=== PATIENT | female | born 1995 | race Caucasian/White ===

== ENCOUNTER 2019-01-02 22:57 | Day surgery (SDC) | payer OTHER ==
[2019-01-02] MEDS ORDERED: Alum Hydroxide/Mag Hydroxide 30 ML, Lidocaine 2% 15 ML PO ONE ×2 (23:23)
[2019-01-02] MEDS ORDERED: Ondansetron 4 MG Tab.DIS PO ONE (23:23)
[2019-01-03] MEDS ORDERED: Ketorolac 60 MG/2 ML SDV IM ONE (00:04)
[2019-01-03] MEDS ORDERED: NS + KCl 20mEq/L 1,000 ML IV SCH ×2 (01:15→02:45)
[2019-01-03] MEDS ORDERED: Iopamidol 755 Mg/ML 100 ML Bottle IV ONE (01:16)
--- NOTE | 2019-01-03 02:31 | EDM.PDOC ---
ED HPI GENERAL MEDICAL PROBLEM - General Chief Complaint: Gastrointestinal Problem Stated Complaint: ABDOMINAL PAIN;VOMITING Time Seen by Provider: 01/03/19 02:26 Source of Information: Reports: Patient History Limitations: Reports: No Limitations - History of Present Illness INITIAL COMMENTS - FREE TEXT/NARRATIVE: c/o abd pain since 2p pt ate lunch, then developed pain from the umbilicus to the xiphoid at 2p that has persisted did not take meds at home, has not had abd pain or abd surgery in the past had a normal BM this AM and then a small BM this BM that did not affect the pain no f/c/d, has had slight nausea pt given Zofran ODT and GI cocktail on arrival, however still had pain and tenderness in the epigastrium labs obtained showing WBC 18k, resepat exam did show some tenderness know at García's point CT of abd/pelvis obtained looking for acute cholecystitis and CT showed a cephalad appendix with a thickened tip that was nearly touching the gallbaldder and met radiologic criteria for an acute appendicitis d/w Dr Gambino who requested Zosyn and surgery at 7 AM and pt to be NPO, she had taken a few sips of H2O on arrival at ED, none since she did not eat supper, did not have an appetite - Related Data Allergies Allergy/AdvReac Type Severity Reaction Status Date / Time No Known Allergies Allergy Verified 01/02/19 23:22 Home Meds: Home Meds . Control Med 1 tab PO DAILY 01/02/19 [History] Past Medical History Musculoskeletal History: Reports: Fracture, Other (See Below) Other Musculoskeletal History: left arm - Past Surgical History HEENT Surgical History: Reports: Oral Surgery, Tonsillectomy Social & Family History - Family History Family Medical History: Noncontributory - Tobacco Use Smoking Status *Q: Never Smoker - Caffeine Use Caffeine Use: Reports: None - Recreational Drug Use Recreational Drug Use: No ED ROS GENERAL - Review of Systems Review Of Systems: See Below Constitutional: Reports: No Symptoms HEENT: Reports: No Symptoms Respiratory: Reports: No Symptoms Cardiovascular: Reports: No Symptoms Endocrine: Reports: No Symptoms GI/Abdominal: Reports: Abdominal Pain, Nausea : Reports: No Symptoms Musculoskeletal: Reports: No Symptoms Skin: Reports: No Symptoms Neurological: Reports: No Symptoms Psychiatric: Reports: No Symptoms Hematologic/Lymphatic: Reports: No Symptoms Immunologic: Reports: No Symptoms ED EXAM, GI/ABD - Physical Exam Exam: See Below Exam Limited By: No Limitations General Appearance: Alert, WD/WN, No Apparent Distress Ears: Normal External Exam, Hearing Grossly Normal Nose: Normal Inspection, Normal Mucosa, No Blood Throat/Mouth: Normal Inspection, Normal Lips, Normal Teeth, Normal Voice, No Airway Compromise Head: Atraumatic, Normocephalic Neck: Normal Inspection, Supple, Non-Tender, Full Range of Motion Respiratory/Chest: No Respiratory Distress, Lungs Clear, Normal Breath Sounds, No Accessory Muscle Use, Chest Non-Tender Cardiovascular: Regular Rate, Rhythm, No Edema, No Gallop, No JVD, No Murmur, No Rub GI/Abdominal Exam: Soft, No Distention, Other (1+ tender in epigastirum and RUQ , later with 1+ tender in RLQ, no CVAT, BS present and normal to slightly decreased) Back Exam: Normal Inspection Extremities: Normal Inspection, Normal Range of Motion, Non-Tender, No Pedal Edema Neurological: Alert, Oriented, CN II-XII Intact, Normal Cognition, Normal Gait, No Motor/Sensory Deficits Psychiatric: Normal Affect, Normal Mood Skin Exam: Warm, Dry, Intact, Normal Color, No Rash Lymphatic: No Adenopathy Course - Vital Signs Last Recorded V/S: Last Vital Signs Temp 36.8 C 01/03/19 01:41 Pulse 65 01/03/19 01:41 Resp 18 01/03/19 01:41 BP 103/73 01/03/19 01:41 Pulse Ox 100 01/03/19 01:41 - Orders/Labs/Meds Orders: Active Orders 24 hr Category Date Time Status Abdomen Pelvis w Cont [CT] Stat Exams 01/03/19 01:02 Taken NS + KCl 20mEq/L [Normal Saline with 20 mEq KCl] 1,000 Med 01/03/19 01:15 Active ml IV ASDIRECTED Piperacillin/Tazobactam [Zosyn] 3.375 gm Med 01/03/19 02:30 Ordered Sodium Chloride 0.9% [Normal Saline] 50 ml IV Q6H Medication Orders Potassium Chloride/Sodium Chloride (Normal Saline With 20 Meq Kcl) 1,000 mls @ 999 mls/hr IV ASDIRECTED SEBASTIAN Last Admin: 01/03/19 01:36 Dose: 999 mls/hr Piperacillin Sod/Tazobactam (Sod 3.375 gm/ Sodium Chloride) 50 mls @ 100 mls/ hr IV Q6H SEBASTIAN Labs: Laboratory Tests 01/03/19 01/03/19 01/03/19 Range/Units 00:15 00:15 00:24 WBC 18.4 H (4.5-12.0) X10-3/uL RBC 5.05 (3.23-5.20) x10(6)uL Hgb 15.4 (11.5-15.5) g/dL Hct 44.5 (30.0-51.3) % MCV 88.1 (80-96) fL MCH 30.5 (27.7-33.6) pg MCHC 34.6 (32.2-35.4) g/dL RDW 12.5 (11.5-15.5) % Plt Count 244 (125-369) X10(3)uL MPV 9.1 (7.4-10.4) fL Add Manual Diff Yes Neutrophils % (Manual) 80 (46-82) % Band Neutrophils % 6 (0-6) % Lymphocytes % (Manual) 9 L (13-37) % Monocytes % (Manual) 4 (4-12) % Eosinophils % (Manual) 1 (0-5) % Sodium (135-145) mmol/L Potassium (3.5-5.3) mmol/L Chloride (100-110) mmol/L Carbon Dioxide (21-32) mmol/L BUN (7-18) mg/dL Creatinine (0.55-1.02) mg/dL Est Cr Clr Drug Dosing mL/min Estimated GFR (MDRD) (>60) BUN/Creatinine Ratio (9-20) Glucose (80-116) mg/dL Calcium (8.6-10.2) mg/dL Total Bilirubin (0.1-1.3) mg/dL AST (5-25) IU/L ALT (12-36) U/L Alkaline Phosphatase (56-112) IU/L C-Reactive Protein (0.5-0.9) mg/dL Total Protein (6.0-8.0) g/dL Albumin (3.5-5.2) g/dL Globulin g/dL Albumin/Globulin Ratio Amylase (25-115) U/L Urine Color Yellow (YELLOW) Urine Appearance Slightly cloudy (CLEAR) Urine pH 6.0 (5.0-6.5) Ur Specific [place] 1.030 H (1.010-1.025) Urine Protein Negative (NEGATIVE) mg/dL Urine Glucose (UA) Normal (NORMAL) mg/dL Urine Ketones 15 H (NEGATIVE) mg/dL Urine Occult Blood Negative (NEGATIVE) Urine Nitrite Negative (NEGATIVE) Urine Bilirubin Negative (NEGATIVE) Urine Urobilinogen Normal (NEGATIVE) mg/dL Ur Leukocyte Esterase Negative (NEGATIVE) Urine RBC 0-5 (0-5) Urine WBC 0-5 (0-5) Ur Squamous Epith Cells Moderate H (NS,R,O) Amorphous Sediment Few Urine Bacteria Few H (NS) Urine HCG, Qual Negative (NEGATIVE) 01/03/19 01/03/19 01/03/19 Range/Units 00:24 00:24 00:24 WBC (4.5-12.0) X10-3/uL RBC (3.23-5.20) x10(6)uL Hgb (11.5-15.5) g/dL Hct (30.0-51.3) % MCV (80-96) fL MCH (27.7-33.6) pg MCHC (32.2-35.4) g/dL RDW (11.5-15.5) % Plt Count (125-369) X10(3)uL MPV (7.4-10.4) fL Add Manual Diff Neutrophils % (Manual) (46-82) % Band Neutrophils % (0-6) % Lymphocytes % (Manual) (13-37) % Monocytes % (Manual) (4-12) % Eosinophils % (Manual) (0-5) % Sodium 138 (135-145) mmol/L Potassium 3.4 L (3.5-5.3) mmol/L Chloride 102 (100-110) mmol/L Carbon Dioxide 25 (21-32) mmol/L BUN 9 (7-18) mg/dL Creatinine 0.9 (0.55-1.02) mg/dL Est Cr Clr Drug Dosing 91.01 mL/min Estimated GFR (MDRD) > 60 (>60) BUN/Creatinine Ratio 10.0 (9-20) Glucose 124 H (80-116) mg/dL Calcium 9.4 (8.6-10.2) mg/dL Total Bilirubin 0.5 (0.1-1.3) mg/dL AST 16 (5-25) IU/L ALT 17 (12-36) U/L Alkaline Phosphatase 59 (56-112) IU/L C-Reactive Protein 0.3 L (0.5-0.9) mg/dL Total Protein 7.9 (6.0-8.0) g/dL Albumin 3.9 (3.5-5.2) g/dL Globulin 4.0 g/dL Albumin/Globulin Ratio 1.0 Amylase 206 H (25-115) U/L Urine Color (YELLOW) Urine Appearance (CLEAR) Urine pH (5.0-6.5) Ur Specific [place] (1.010-1.025) Urine Protein (NEGATIVE) mg/dL Urine Glucose (UA) (NORMAL) mg/dL Urine Ketones (NEGATIVE) mg/dL Urine Occult Blood (NEGATIVE) Urine Nitrite (NEGATIVE) Urine Bilirubin (NEGATIVE) Urine Urobilinogen (NEGATIVE) mg/dL Ur Leukocyte Esterase (NEGATIVE) Urine RBC (0-5) Urine WBC (0-5) Ur Squamous Epith Cells (NS,R,O) Amorphous Sediment Urine Bacteria (NS) Urine HCG, Qual (NEGATIVE) Meds: Medications Generic Name Dose Route Start Last Admin Trade Name Freq PRN Reason Stop Dose Admin Potassium Chloride/Sodium Chloride 1,000 mls @ 999 mls/hr 01/03/19 01:15 12/14 01:36 Normal Saline With 20 Meq Kcl IV 999 mls/hr ASDIRECTED SEBASTIAN Administration Piperacillin Sod/Tazobactam 50 mls @ 100 mls/hr 01/03/19 02:30 Sod 3.375 gm/ Sodium Chloride IV Q6H SEBASTIAN Discontinued Medications Generic Name Dose Route Start Last Admin Trade Name Freq PRN Reason Stop Dose Admin Al Hydroxide/Mg Hydroxide 30 0 ml 01/02/19 23:23 01/02/19 23:43 ml/ Lidocaine HCl 15 ml PO 01/02/19 23:24 45 ml ONETIME ONE Administration Iopamidol 80 ml 01/03/19 01:16 01/03/19 01:29 Isovue-370 (76%) IV 01/03/19 01:17 80 ml . DIRECTED ONE Administration Ketorolac Tromethamine 60 mg 01/03/19 00:04 01/03/19 00:18 Toradol IM 01/03/19 00:05 60 mg ONETIME ONE Administration Ondansetron HCl 4 mg 01/02/19 23:23 01/02/19 23:38 Zofran Odt PO 01/02/19 23:24 4 mg ONETIME ONE Administration Departure - Departure Time of Disposition: 02:33 Disposition: DC/Tfer to Other 70 Condition: Good Clinical Impression: Acute appendicitis - Discharge Information *PRESCRIPTION DRUG MONITORING PROGRAM REVIEWED*: Not Applicable *COPY OF PRESCRIPTION DRUG MONITORING REPORT IN PATIENT GEORGINA: Not Applicable Referrals: PCP,None [Primary Care Provider] - - My Orders Last 24 Hours: My Active Orders 01/03/19 01:02 Abdomen Pelvis w Cont [CT] Stat 01/03/19 01:15 NS + KCl 20mEq/L [Normal Saline with 20 mEq KCl] 1,000 ml IV ASDIRECTED 01/03/19 02:30 Piperacillin/Tazobactam [Zosyn] 3.375 gm Sodium Chloride 0.9% [Normal Saline] 50 ml IV Q6H - Assessment/Plan Last 24 Hours: My Active Orders 01/03/19 01:02 Abdomen Pelvis w Cont [CT] Stat 01/03/19 01:15 NS + KCl 20mEq/L [Normal Saline with 20 mEq KCl] 1,000 ml IV ASDIRECTED 01/03/19 02:30 Piperacillin/Tazobactam [Zosyn] 3.375 gm Sodium Chloride 0.9% [Normal Saline] 50 ml IV Q6H
[2019-01-03] MEDS ORDERED: Ondansetron 4 MG/2 ML SDV IV PRN (02:40)
[2019-01-03] MEDS ORDERED: Morphine 2 MG/ML Syringe IVPUSH PRN (02:40)
[2019-01-03] MEDS ORDERED: Lactated Ringers 1,000 ML IV ONE (02:42)
[2019-01-03] MEDS ORDERED: Propofol 200 MG/20 ML SDV IV ONE (02:42)
[2019-01-03] MEDS ORDERED: Rocuronium 100 MG/10 ML MDV IV ONE (02:42)
[2019-01-03] MEDS ORDERED: Ketorolac 30 MG/ML SDV IVPUSH ONE ×2 (02:42→12:20)
[2019-01-03] MEDS ORDERED: Neostigmine Methylsulfate 10 MG/10 ML MDV IVPUSH ONE (02:42)
[2019-01-03] MEDS ORDERED: Glycopyrrolate 0.2 MG/ML 5 ML MDV IV ONE (02:42)
[2019-01-03] MEDS ORDERED: Ondansetron 4 MG/2 ML SDV IVPUSH ONE (02:42)
[2019-01-03] MEDS: Piperacillin/Tazobactam 3.375 GM in Sodium Chloride 0.9% 50 ML IV SCH ×2 (03:09→12:25)
[2019-01-03] MEDS ORDERED: Piperacillin/Tazobactam 3.375 GM in Sodium Chloride 0.9% 50 ML IV SCH (06:00)
[2019-01-03] MEDS ORDERED: fentaNYL 100 MCG/2 ML SDV IV ONE ×2 (07:00)
[2019-01-03] MEDS ORDERED: Midazolam 1 MG/ML 2 ML SDV IV ONE ×2 (07:00)
--- NOTE | 2019-01-03 07:00 | PCM.HPR ---
H & P Addendum review - H & P Addendum Review Date of Original H & P: 01/03/19 Date Reviewed: 01/03/19 Time Reviewed: 06:59 Patient was Examined: No Changes (Discussed findings with patient and family, agrees to proceed with lap appy. Risks and complications reviewed, consent obtained)
--- NOTE | 2019-01-03 08:03 | PCM.OPNOTE ---
- General Post-Op/Procedure Note Date of Surgery/Procedure: 01/03/19 Operative Procedure(s): Lap appy Findings: Acute Appy Pre Op Diagnosis: Acute Appendicitis Post-Op Diagnosis: Same Anesthesia Technique: General ET Tube Primary Surgeon: Nishant Gambino Pathology: Appendix EBL in mLs: 2 Complications: None Condition: Good Free Text/Narrative:: Intake & Output 01/02/19 01/03/19 01/03/19 22:59 06:59 14:59 Intake Total 6814 894 Balance 0144 244
[2019-01-03] MEDS ORDERED: Acetaminophen/HYDROcodone 325-5 MG Tab PO PRN (08:04)
[2019-01-03] MEDS ORDERED: Lactated Ringers 1,000 ML IV SCH (08:15)
--- NOTE | 2019-01-03 13:08 | OR ---
DATE OF OPERATION: 01/03/2019 SURGEON: Nishant Gambino MD PREOPERATIVE DIAGNOSIS: Acute appendicitis. POSTOPERATIVE DIAGNOSIS: Acute appendicitis. PROCEDURE: Laparoscopic appendectomy. ANESTHESIA: General. DESCRIPTION OF PROCEDURE: The patient was brought to the operating room, where general endotracheal anesthesia was administered. The abdomen was prepped with ChloraPrep and draped sterilely. An infraumbilical incision was made and extended into the peritoneal cavity without difficulty. The Aviva cannulator was introduced and pneumoperitoneum obtained. General exploration revealed the stomach to be distended, so an orogastric tube was used to decompress this. There was some inflammation and some yellowish fluid in the right upper quadrant adjacent to the gallbladder and liver. Two 5 mm ports were placed in the suprapubic position and usp between the umbilicus and pubis. An acutely inflamed appendix was present that was partially adherent into the omentum at its distal third. This was bluntly freed up. A window was made at the base of the appendix and the Endo-CLIVE 3.5 mm stapler was used to transect the appendix at its base with the cecum. A second application of the Endo-CLIVE 2.5 mm stapler was used to transect the mesial appendix. Staple lines were hemostatic. The appendix was brought out through the umbilical incision. A right upper quadrant was thoroughly irrigated and return was clear and hemostasis assured. Ports were removed under direct vision and remained hemostatic. Umbilical fascia was closed with [id number] #0 Vicryl. Skin was closed with #4-0 Vicryl subcuticular sutures, benzoin and Steri-Strips were placed and Band-Aids applied. The patient tolerated the procedure well and returned to recovery in stable condition. ESTIMATED BLOOD LOSS: 2 mL. /[id number] Jackelyn BARRAGAN/ROBERT
== END 2019-01-03 14:15 | disposition home or self-care (01) ==
LOC: FB.ED 22:57 → FB.SDS 01-03 02:41 → FB.MS 01-03 02:49 → FB.SDS 01-03 14:15
PROVIDERS: ATTEND Surgery
DX: K35.80 Unspecified acute appendicitis (principal)
CPT/HCPCS: 36415; 74177; 80053; 81001; 81025; 82150; 85025; 86140; 88304; 94150; 96365; 96372; 99285-25; A9270-GY; J1885; J2250; J2405; J2543; J2704; J2710; J3010; J3480; J3490; J7050; J7120; Q9967